=== PATIENT | male | born 1985 | race Caucasian/White ===

== ENCOUNTER 2017-04-22 01:12 | Emergency (ER) | payer BC ==
[~2017-04-22] VITALS: Ht 180.3 cm; Wt 68.5 kg
[2017-04-22] MEDS ORDERED: NARCAN4 MG NS (01:46)
[2017-04-22] MEDS ORDERED: ACYCLOVIR800 MG PO (02:46)
[2017-04-22 02:54] VITALS: BP 141/84
== END 2017-04-22 02:55 | disposition home or self-care (01) ==
LOC: EDBD 01:12 → EME 01:12
DX: T40.1X1A Poisoning by heroin, accidental (unintentional), initial encounter (principal); F14.10 Cocaine abuse, uncomplicated; F10.129 Alcohol abuse with intoxication, unspecified
CPT/HCPCS: 93005; 99281; 99284